=== PATIENT | male | born 1980 | race Caucasian/White ===

== ENCOUNTER 2016-09-23 14:32 | Emergency (ER) | payer SELFPAY ==
[~2016-09-23] VITALS: Ht 175.3 cm; Wt 75.9 kg
[2016-09-23] MEDS ORDERED: LORazepam 2 MG/ML, 1ML ONE (15:44)
[2016-09-23] MEDS ORDERED: LORazepam 2 MG/ML, 1ML IM ONE (16:00)
[2016-09-23 16:03] LABS: ASPARTATE AMINO TRANSFERASE 19 U/L (15-37); BLOOD UREA NITROGEN 11 mg/dL (7-18)
[2016-09-23 16:10] LABS: IS PT STATUS REG ER OR PRE ER? YES
[2016-09-23 17:37] VITALS: BP 125/84
== END 2016-09-23 17:39 | disposition home or self-care (01) ==
LOC: ED 17:30
DX: R07.89 Other chest pain (principal); R11.0 Nausea
CPT/HCPCS: 36415; 71010; 80053; 83690; 84484; 85025; 93005; 96372; J2060

== ENCOUNTER 2018-10-09 07:06 | Inpatient (IN) | payer BC, MEDICAID, OTHER ==
[~2018-10-09] VITALS: Ht 175.3 cm; Wt 70.8 kg
[2018-10-13 06:35] VITALS: BP 110/73
== END 2018-10-13 10:32 | disposition home or self-care (01) | DRG 918 ==
LOC: ED 08:40 → EDIP 09:40 → 4WST 10:32 → DCLOUNGE 10-13 10:20
PROVIDERS: ADMIT Hospitalist; ATTEND Hospitalist
DX: T40.7X2A Poisoning by cannabis (derivatives), intentional self-harm, initial encounter (principal); E87.0 Hyperosmolality and hypernatremia; E87.1 Hypo-osmolality and hyponatremia; E87.2 Acidosis; Y92.89 Other specified places as the place of occurrence of the external cause; E86.0 Dehydration; F17.200 Nicotine dependence, unspecified, uncomplicated; F41.9 Anxiety disorder, unspecified; F43.21 Adjustment disorder with depressed mood; F10.129 Alcohol abuse with intoxication, unspecified; Z91.5 Personal history of self-harm; F19.10 Other psychoactive substance abuse, uncomplicated; Z71.51 Drug abuse counseling and surveillance of drug abuser; Z88.0 Allergy status to penicillin
CPT/HCPCS: 36415; 80048; 80053; 80307; 82962; 85025; 93005; 96374; 99285; G0378; J1650; C9113; J7030

== ENCOUNTER 2019-04-04 13:44 | Observation (INO) | payer MEDICAID ==
[~2019-04-04] VITALS: Ht 170.2 cm; Wt 77.6 kg
[~2019-04-04 13:44] MED LIST: NALT50TA PO; QUET25TA7 PO; SERT50TA28 PO
[2019-04-04] MEDS ORDERED: SODIUM CHLORIDE 0.9% 1,000ML IVBOLUS ONE (14:00)
[2019-04-04] MEDS ORDERED: THIAMINE 100MG TABLET PO ONE (14:00)
[2019-04-04] MEDS ORDERED: SODIUM CHLORIDE FLUSH 10ML SYR IVF ONE (14:00)
[2019-04-04] MEDS ORDERED: THIAMINE 100MG TABLET ONE (14:26)
[2019-04-04] MEDS ORDERED: LORazepam 2 MG/ML, 1ML ONE (14:27)
[2019-04-04 14:30] LABS: BASOPHILS # (AUTO) 0.05 x10^3/uL (0-0.1); BASOPHILS % (AUTO) 1 % (0-1); EOSINOPHILS # (AUTO) 0.02 x10^3/uL (0-0.4); EOSINOPHILS % (AUTO) 0 % (1-7); LYMPHOCYTES # (AUTO) 1.79 x10^3/uL (1-3.4); LYMPHOCYTES % (AUTO) 23 % (22-44); MD NO; MEAN CORPUSCULAR HEMOGLOBIN 34.1 pg (27.5-34.5); MEAN CORPUSCULAR HGB CONC 34.1 g/dL (33.2-36.2); MEAN PLATELET VOLUME 7.6 fL (7.4-10.4); MONOCYTES # (AUTO) 1.05 x10^3/uL (0.2-0.8); MONOCYTES % (AUTO) 14 % (2-9); NEUTROPHILS # (AUTO) 4.79 x10^3/uL (1.8-6.8); NEUTROPHILS % (AUTO) 62 % (42-75); PLATELET COUNT 287 x10^3/uL (130-400); RED BLOOD COUNT 4.81 x10^6/uL (4.38-5.82); RED CELL DISTRIBUTION WIDTH 14.4 % (9.4-14.8)
[2019-04-04] MEDS ORDERED: LORazepam 2 MG/ML, 1ML IVPush ONE (14:30)
--- NOTE | 2019-04-04 14:38 | NUR ---
PT TO ED FROM HOME. HX ETOH, DRINKING HEAVILY SINCE NOV, 10 SHOTS/DAY, ALSO METH/PANDA/ECSTASY/WHIP ITS/INHALANTS, MOSTLY DAILY. DENIES IVDA. DENIES HX SEIZURES/DENIES SI. [facility], UNABLE TO GET APPT, VERBALIZES WANTING HELP. STS FELT "WEIRD" TODAY, C/O CHEST TIGHTNESS, STABBING INTERMITTENT 6/10 CHEST PAIN, ANXIETY, "HEART RACING", UNABLE TO CATCH BREATH. A&OX4 GCS 15, COOPERATIVE, ST ON MONITOR 120-130. PIV EST, LABS DRAWN BY COURT SPECIALIST, MEDS/FLUID PER APR. GIVEN URINAL FOR UA. CALL HERRING IN REACH.
[2019-04-04 14:43] LABS: ALANINE AMINOTRANSFERASE 122 U/L (12-78); ALBUMIN 3.9 g/dL (3.4-5.0); ANION GAP 8 mmol/L (5-15); CALCIUM 8.8 mg/dL (8.5-10.1); CHLORIDE 103 mmol/L (98-107)
[2019-04-04 14:48] LABS: ALKALINE PHOSPHATASE 117 U/L (45-117); BILIRUBIN,TOTAL 0.7 mg/dL (0.2-1.0); CREATININE 0.95 mg/dL (0.7-1.3); TOTAL PROTEIN 7.7 g/dL (6.4-8.2); TROPONIN I < 0.015 ng/mL (0.000-0.045)
[2019-04-04] MEDS ORDERED: MAGNESIUM SULFATE 1 GM, THIAMINE 100 MG, FOLIC ACID 1 MG, MVI ADULT 10 ML in SODIUM CHL... IV ONE (15:30)
[2019-04-04] MEDS ORDERED: CHLORDIAZEPOXIDE 25 MG CAPSULE PO ONE (15:30)
[2019-04-04] MEDS ORDERED: SODIUM CHLORIDE 0.9%, 500ML IVBOLUS ONE (15:30)
--- NOTE | 2019-04-04 15:35 | NUR ---
URINE COLLECTED AND SENT TO LAB. DR GUAN AT BEDSIDE.
[2019-04-04] MEDS ORDERED: POTASSIUM CHLORIDE 20 MEQ TAB.ER.PRT ONE (15:40)
[2019-04-04] MEDS ORDERED: CHLORDIAZEPOXIDE 25 MG CAPSULE ONE (15:41)
[2019-04-04 15:48] LABS: MICROSCOPIC NOT IND
[2019-04-04 15:50] LABS: CULTURE INDICATED? NO
[2019-04-04] MEDS ORDERED: LORazepam 1MG TABLET PO PRN ×4 (16:00)
[2019-04-04] MEDS ORDERED: LORazepam 0.5MG TABLET PO PRN (16:00)
[2019-04-04] MEDS ORDERED: LORazepam 2 MG/ML, 1ML IV PRN ×5 (16:00)
[2019-04-04] MEDS ORDERED: CHLORDIAZEPOXIDE 10 MG CAPSULE PO SCH (16:00)
[2019-04-04] MEDS ORDERED: POTASSIUM CHLORIDE 20 MEQ TAB.ER.PRT PO ONE (16:00)
--- NOTE | 2019-04-04 16:00 | NUR ---
MEAL TRAY PROVIDED. IVF INFUSING ORDERED AND PT MED NOTED. CALL LIGHT W/I REACH, VSS
[2019-04-04 16:03] LABS: AMPHETAMINE SCREEN, URINE Positive (Negative); BARBITURATE SCREEN, URINE Negative (Negative); BENZODIAZEPINE SCREEN, URINE Negative (Negative); CANNABINOID SCREEN, URINE Negative (Negative); COCAINE SCREEN, URINE Negative (Negative); METHADONE SCREEN, URINE Negative (Negative); OPIATE SCREEN, URINE Negative (Negative)
--- NOTE | 2019-04-04 17:54 | NUR ---
[facility] RPT CALLED TO FLOOR RN. PT AWARE, VSS, NAD NOTED.
[2019-04-04] MEDS ORDERED: THIAMINE 200 MG in DEXTROSE 5% 50 ML IVPB ONE (18:20)
[2019-04-04 18:23] VITALS: BP 138/94
[2019-04-04 20:29] VITALS: BP 128/72
[2019-04-04] MEDS ORDERED: POTASSIUM CHLORIDE 20 MEQ, MAGNESIUM SULFATE 1 GM, FOLIC ACID 1 MG, THIAMINE 200 MG, MV... IV SCH (22:00)
[2019-04-04] MEDS ORDERED: CHLORDIAZEPOXIDE 25 MG CAPSULE PO SCH (22:00)
[2019-04-04 23:16] LABS: TROPONIN I < 0.015 ng/mL (0.000-0.045)
[2019-04-05 01:00] VITALS: BP 133/89
[2019-04-05 08:00] VITALS: BP 136/82
[2019-04-05] MEDS ORDERED: hydrALAzine 20 MG/ML, 1ML IV PRN (09:00)
[2019-04-05 09:11] LABS: BASOPHILS # (AUTO) 0.03 x10^3/uL (0-0.1); BASOPHILS % (AUTO) 0 % (0-1); EOSINOPHILS # (AUTO) 0.09 x10^3/uL (0-0.4); EOSINOPHILS % (AUTO) 1 % (1-7); LYMPHOCYTES # (AUTO) 1.47 x10^3/uL (1-3.4); LYMPHOCYTES % (AUTO) 22 % (22-44); MD NO; MEAN CORPUSCULAR HEMOGLOBIN 34.2 pg (27.5-34.5); MEAN CORPUSCULAR VOLUME 100.7 fL (81-97); MONOCYTES # (AUTO) 0.63 x10^3/uL (0.2-0.8); MONOCYTES % (AUTO) 10 % (2-9); NEUTROPHILS # (AUTO) 4.36 x10^3/uL (1.8-6.8); NEUTROPHILS % (AUTO) 66 % (42-75); PLATELET COUNT 246 x10^3/uL (130-400); RED BLOOD COUNT 4.66 x10^6/uL (4.38-5.82); RED CELL DISTRIBUTION WIDTH 14.4 % (9.4-14.8)
[2019-04-05] MEDS: THIAMINE 100MG TABLET PO SCH ×2 (09:24→21:01)
[2019-04-05] MEDS: FOLIC ACID 1 MG TABLET PO SCH (09:24)
[2019-04-05] MEDS: POTASSIUM CHLORIDE 20 MEQ TAB.ER.PRT PO SCH ×2 (09:25→12:11)
[2019-04-05] MEDS: SODIUM CHLORIDE 0.9% 1,000 ML IV SCH ×3 (09:25→23:29)
[2019-04-05 09:37] LABS: ALANINE AMINOTRANSFERASE 101 U/L (12-78); ALBUMIN 3.1 g/dL (3.4-5.0); ANION GAP 7 mmol/L (5-15); CALCIUM 8.3 mg/dL (8.5-10.1); CHLORIDE 105 mmol/L (98-107); CREATININE 1.09 mg/dL (0.7-1.3)
[2019-04-05 09:39] LABS: ALKALINE PHOSPHATASE 108 U/L (45-117); BILIRUBIN,TOTAL 2.3 mg/dL (0.2-1.0); TOTAL PROTEIN 6.5 g/dL (6.4-8.2)
[2019-04-05 12:07] VITALS: BP 122/81
[2019-04-05] MEDS: CHLORDIAZEPOXIDE 10 MG CAPSULE PO SCH ×2 (15:46→21:01)
[2019-04-05 19:48] VITALS: BP 116/77
[2019-04-06 01:04] VITALS: BP 117/72
[2019-04-06] MEDS: CHLORDIAZEPOXIDE 10 MG CAPSULE PO SCH ×2 (05:20→09:57)
[2019-04-06 05:39] LABS: ALANINE AMINOTRANSFERASE 101 U/L (12-78); ALBUMIN 2.8 g/dL (3.4-5.0); ANION GAP 5 mmol/L (5-15); CALCIUM 8.1 mg/dL (8.5-10.1); CHLORIDE 110 mmol/L (98-107); CREATININE 0.81 mg/dL (0.7-1.3)
[2019-04-06 05:42] LABS: ALKALINE PHOSPHATASE 96 U/L (45-117); BILIRUBIN,TOTAL 0.8 mg/dL (0.2-1.0); TOTAL PROTEIN 6.1 g/dL (6.4-8.2)
[2019-04-06] MEDS: SODIUM CHLORIDE 0.9% 1,000 ML IV SCH (05:54)
[2019-04-06 07:14] VITALS: BP 109/73
[2019-04-06] MEDS: THIAMINE 100MG TABLET PO SCH (09:00)
[2019-04-06] MEDS ORDERED: CHLORDIAZEPOXIDE 25 MG CAPSULE ONE (09:47)
[2019-04-06] MEDS: FOLIC ACID 1 MG TABLET PO SCH (09:57)
[2019-04-06] MEDS ORDERED: FOLI-17 PO (11:20)
[2019-04-06] MEDS ORDERED: CHLO10CA6 PO (11:20)
[2019-04-06] MEDS ORDERED: THIA100T67 PO (11:20)
[2019-04-06] MEDS ORDERED: MAGN400T26 PO (11:20)
[2019-04-06] MEDS ORDERED: MULT1TAB60 PO (11:20)
== END 2019-04-06 13:46 | disposition home or self-care (01) ==
LOC: ED 15:31 → INTOOBSV 15:48 → EDIP 15:48 → 4WST 18:10
PROVIDERS: ADMIT Internal Medicine; ATTEND Internal Medicine
DX: R07.89 Other chest pain (principal); I16.0 Hypertensive urgency; F41.9 Anxiety disorder, unspecified; G92 Toxic encephalopathy; F10.239 Alcohol dependence with withdrawal, unspecified; E87.6 Hypokalemia; R42 Dizziness and giddiness; F17.200 Nicotine dependence, unspecified, uncomplicated; K70.10 Alcoholic hepatitis without ascites; I10 Essential (primary) hypertension; F32.9 Major depressive disorder, single episode, unspecified; I99.8 Other disorder of circulatory system; Z88.0 Allergy status to penicillin; Z79.899 Other long term (current) drug therapy
CPT/HCPCS: 36415; 71045; 80053; 80307; 81003; 82140; 83735; 84100; 84484; 85025; 93005; 96361; 96365; 96366; 96368; 96375; 99285; G0378; J2060; J3411; J3475; J7030; J7040

== ENCOUNTER 2019-04-20 14:15 | Emergency (ER) | payer MEDICAID ==
[~2019-04-20] VITALS: Ht 170.2 cm; Wt 75.0 kg
[~2019-04-20 14:15] MED LIST changes: +CHLO10CA6 PO; +FOLI-17 PO; +MAGN400T26 PO; +MULT1TAB60 PO; +THIA100T67 PO
--- NOTE | 2019-04-20 14:35 | NUR ---
Late entry: Pt placed in room 2, belongings secured, changed into gown, suicide ideation room precautions in place. WCTM. NAD, respirations even and unlabored. Laying in bed.
--- NOTE | 2019-04-20 14:40 | NUR ---
Late Entry: Pt reports that he is "not suicidal" and went to [facility] originally for an appt to get enrolled into rehab and "get back on track." [facility] placed pt on a legal 2000 and sent him here. Pt continues to deny any SI or need for hold. Pt placed on suicide precaution based on hospital standards. Pt resting in bed, calm and cooperative, given warm blankets. Pt in NAD, denies any additional needs at this time.
--- NOTE | 2019-04-20 14:50 | NUR ---
meal tray ordered
[2019-04-20 14:56] LABS: BASOPHILS # (AUTO) 0.06 x10^3/uL (0-0.1); BASOPHILS % (AUTO) 1 % (0-1); EOSINOPHILS # (AUTO) 0.03 x10^3/uL (0-0.4); EOSINOPHILS % (AUTO) 0 % (1-7); LYMPHOCYTES # (AUTO) 1.56 x10^3/uL (1-3.4); LYMPHOCYTES % (AUTO) 26 % (22-44); MD NO; MEAN CORPUSCULAR HGB CONC 33.9 g/dL (33.2-36.2); MEAN CORPUSCULAR VOLUME 100.2 fL (81-97); MEAN PLATELET VOLUME 7.6 fL (7.4-10.4); MONOCYTES # (AUTO) 0.82 x10^3/uL (0.2-0.8); MONOCYTES % (AUTO) 14 % (2-9); NEUTROPHILS # (AUTO) 3.46 x10^3/uL (1.8-6.8); NEUTROPHILS % (AUTO) 58 % (42-75); PLATELET COUNT 383 x10^3/uL (130-400); RED BLOOD COUNT 4.77 x10^6/uL (4.38-5.82); RED CELL DISTRIBUTION WIDTH 14.6 % (9.4-14.8)
[2019-04-20 15:09] LABS: ALANINE AMINOTRANSFERASE 63 U/L (12-78); ALBUMIN 3.8 g/dL (3.4-5.0); ANION GAP 8 mmol/L (5-15); CALCIUM 8.7 mg/dL (8.5-10.1); CHLORIDE 107 mmol/L (98-107); CREATININE 0.94 mg/dL (0.7-1.3)
[2019-04-20 15:10] LABS: SALICYLATE LEVEL < 1.7 mg/dL (2.8-20.0)
[2019-04-20 15:11] LABS: ALKALINE PHOSPHATASE 89 U/L (45-117); TOTAL PROTEIN 7.3 g/dL (6.4-8.2)
[2019-04-20] MEDS ORDERED: SERTRALINE 50MG TABLET PO ONE (15:30)
[2019-04-20] MEDS ORDERED: NALTREXONE HCL 50 MG TABLET PO ONE (15:30)
[2019-04-20] MEDS ORDERED: SERTRALINE 50MG TABLET ONE (15:41)
--- NOTE | 2019-04-20 15:52 | NUR ---
SEKOU Sewell cleared legal hold and deemed pt safe to dc home. SEKOU Sewell discussed plan of care with pt for dc and pt is in agreement. RN to medicate per MAR prior to discharge. Dr Dos Santos performed medical evaluation on pt and deemed pt to be medically clear. Pt in NAD, denies additional needs at this time. Pt belongings returned. Pt departing in care of his father.
[2019-04-20 15:55] LABS: AMPHETAMINE SCREEN, URINE Positive (Negative); BARBITURATE SCREEN, URINE Negative (Negative); BENZODIAZEPINE SCREEN, URINE Positive (Negative); CANNABINOID SCREEN, URINE Positive (Negative); COCAINE SCREEN, URINE Negative (Negative); METHADONE SCREEN, URINE Negative (Negative); OPIATE SCREEN, URINE Negative (Negative)
[2019-04-20 16:00] VITALS: BP 132/86
== END 2019-04-20 16:05 | disposition home or self-care (01) ==
LOC: ED 15:24
DX: F19.10 Other psychoactive substance abuse, uncomplicated (principal)
CPT/HCPCS: 36415; 80053; 80307; 85025; 93005; 99284

== ENCOUNTER 2019-10-03 13:16 | Emergency (ER) | payer MEDICAID ==
[~2019-10-03] VITALS: Ht 177.8 cm; Wt 71.4 kg
[~2019-10-03 13:16] MED LIST changes: +MULT-449 PO; -MULT1TAB60 PO
--- NOTE | 2019-10-03 13:52 | NUR ---
muck farmer note: no answer when called from brittany
[2019-10-03 15:43] LABS: BASOPHILS % (AUTO) 0 % (0-1); EOSINOPHILS # (AUTO) 0.01 x10^3/uL (0-0.4); EOSINOPHILS % (AUTO) 0 % (1-7); LYMPHOCYTES # (AUTO) 0.72 x10^3/uL (1-3.4); LYMPHOCYTES % (AUTO) 6 % (22-44); MD NO; MEAN CORPUSCULAR HEMOGLOBIN 34.2 pg (27.5-34.5); MEAN CORPUSCULAR HGB CONC 33.6 g/dL (33.2-36.2); MEAN CORPUSCULAR VOLUME 101.9 fL (81-97); MEAN PLATELET VOLUME 7.4 fL (7.4-10.4); MONOCYTES # (AUTO) 0.94 x10^3/uL (0.2-0.8); MONOCYTES % (AUTO) 8 % (2-9); NEUTROPHILS # (AUTO) 9.82 x10^3/uL (1.8-6.8); NEUTROPHILS % (AUTO) 85 % (42-75); PLATELET COUNT 319 x10^3/uL (130-400); RED BLOOD COUNT 5.16 x10^6/uL (4.38-5.82); RED CELL DISTRIBUTION WIDTH 13.3 % (9.4-14.8)
--- NOTE | 2019-10-03 15:52 | NUR ---
TO ROOM FROM LOBBY. NAD.
[2019-10-03 15:55] LABS: ALANINE AMINOTRANSFERASE 56 U/L (12-78); ALBUMIN 3.9 g/dL (3.4-5.0); ANION GAP 6 mmol/L (5-15); CALCIUM 8.9 mg/dL (8.5-10.1); CHLORIDE 102 mmol/L (98-107)
[2019-10-03 16:00] LABS: ALKALINE PHOSPHATASE 98 U/L (45-117); BILIRUBIN,TOTAL 1.4 mg/dL (0.2-1.0); TROPONIN I < 0.015 ng/mL (0.000-0.045)
[2019-10-03 16:08] VITALS: BP 133/92
--- NOTE | 2019-10-03 16:30 | NUR ---
LATE ENTRY DUE TO PATIENT CARE: THIS IS A 39 YO MALE BIB [facility] FOR ANXIETY, NAUSEA, RIGHT FLANK PAIN TAHT STARTED THIS AM AT WORK, PATIENT STATES "I THINK I AM GOING THROUGH ALCOHOL WITHDRAWL, I HAVE BEFORE AND IT FEELS LIKE THIS" PATIENT HAS HX OF ETOH ABUSE, LAST DRINK 2 DAYS AGO, PATIENT IS TRYING TO QUIT ETOH. PATIENT IS A&OX4, NO TREMORS NOTED, VSS, ALL MONITORING IN PLACE, NSR ON [employer] IN THE 80'S. CALL LIGHT IN REACH. ERP IN ROOM FOR RECHECK
--- NOTE | 2019-10-03 17:18 | NUR ---
Patient given discharge instructions and they have confirmed that they understand the instructions. Patient ambulatory with steady gait.
== END 2019-10-03 17:20 | disposition home or self-care (01) ==
LOC: ED 16:45
DX: F10.239 Alcohol dependence with withdrawal, unspecified (principal); F41.1 Generalized anxiety disorder; R06.4 Hyperventilation; R07.89 Other chest pain; R06.02 Shortness of breath; R42 Dizziness and giddiness; Y90.0 Blood alcohol level of less than 20 mg/100 ml
CPT/HCPCS: 36415; 71045; 80053; 84484; 85025; 93005; 99285

== ENCOUNTER 2020-06-13 09:58 | Emergency (ER) | payer MEDICAID ==
[~2020-06-13] VITALS: Ht 175.3 cm; Wt 79.0 kg
[~2020-06-13 09:58] MED LIST changes: -FOLI-17 PO; +FOLI1TAB32 PO
--- NOTE | 2020-06-13 10:45 | NUR ---
PT AMBULATORY TO ROOM 35 W/ C/O LOW BACK PAIN "FOR A WHILE NOW", CP X 1 WEEK, NUMBNESS X 2 MONTHS AFTER INHALING NITROUS OXIDE. WENT TO [facility] AND HAD MRI FOR NUMBNESS TO BILAT LEGS AND HAD NEGATIVE RESULT AND WAS SUPPOSED TO F/U W/ NEUROLOGIST AND NEVER HAD AN APPT. PT STATES NO COCAINE, METH, MARIJUANA "EVERYTHING EXCEPT OPIATES AND FENTANYL". NO USE X 6 MONTHS. LAST USE NITROUS OXIDE 4 DAYS AGO. PT RESTING ON [facility]. NADN. MONITORS APPLIED. WARM BLANKET APPLIED.
[2020-06-13 11:16] LABS: BASOPHILS % (AUTO) 1 % (0-1); EOSINOPHILS % (AUTO) 1 % (1-7); LYMPHOCYTES % (AUTO) 24 % (22-44); MEAN CORPUSCULAR HEMOGLOBIN 33.8 pg (27.5-34.5); MEAN CORPUSCULAR HGB CONC 34.3 g/dL (33.2-36.2); MONOCYTES % (AUTO) 15 % (2-9); NEUTROPHILS % (AUTO) 59 % (42-75); PLATELET COUNT 301 x10^3/uL (130-400); RED BLOOD COUNT 4.66 x10^6/uL (4.38-5.82); RED CELL DISTRIBUTION WIDTH 14.2 % (9.4-14.8)
[2020-06-13 11:17] LABS: MD NO
[2020-06-13 11:27] LABS: ALANINE AMINOTRANSFERASE 66 U/L (12-78); ALBUMIN 3.7 g/dL (3.4-5.0); ANION GAP 5 mmol/L (5-15); CALCIUM 9.1 mg/dL (8.5-10.1); CHLORIDE 109 mmol/L (98-107); CREATININE 1.01 mg/dL (0.7-1.3)
[2020-06-13 11:29] LABS: MICROSCOPIC NOT IND
[2020-06-13 11:29] LABS: ALKALINE PHOSPHATASE 69 U/L (45-117); BILIRUBIN,TOTAL 0.6 mg/dL (0.2-1.0); TOTAL PROTEIN 7.4 g/dL (6.4-8.2)
--- NOTE | 2020-06-13 11:45 | NUR ---
PT CHART REVIEWED AND PLACED FOR RECHECK.
[2020-06-13 12:09] VITALS: BP 116/80
--- NOTE | 2020-06-13 12:09 | NUR ---
PT RESTING ON GURNEY. NADN. [place].
== END 2020-06-13 12:18 | disposition home or self-care (01) ==
LOC: ED 12:00
DX: R10.84 Generalized abdominal pain (principal); M54.5 Low back pain
CPT/HCPCS: 36415; 74176; 80053; 81003; 85025; 93005; 99285